=== PATIENT | male | born 1970 | race Caucasian/White ===

== ENCOUNTER 2017-04-03 06:08 | Emergency (ER) | payer OTHER ==
[~2017-04-03] VITALS: Ht 180.3 cm; Wt 109.3 kg
[~2017-04-03 06:08] MED LIST: ACET325 PO; ALBU90OI INH; AMIT50 PO; AZIT250 PO; Bactrim Ds Tab1 EACH PO; CEPH500 PO; CIPR500 PO; CYCL10; CYCL10 PO; DOXY100 PO; GABA100 PO; HYDACE10B PO; HYDACE5 PO; IBUP800 PO; LEVFLO250 PO; MELO7.5 PO; METF500 PO; METH10 PO; Monodox100 MG PO; NAPR500 PO; NAPR550 PO; OMEP20ER PO; OXYACE5T PO; PENVK250 PO; PENVK500 PO; PHENA200 PO; PRED20 PO; PROACE100 PO; Percocet 10-321 EACH PO; Prednisone20 MG PO; RXCYCL10 PO; RXNAPNA550 PO; SULTRIDS PO; TRAM50 PO; Valium5 MG PO
[2017-04-03] MEDS ORDERED: Indomethacin50 MG PO (09:24)
== END 2017-04-03 09:46 | disposition home or self-care (01) ==
LOC: ER 06:08
DX: M10.071 Idiopathic gout, right ankle and foot (principal); F17.200 Nicotine dependence, unspecified, uncomplicated; Z88.6 Allergy status to analgesic agent
CPT/HCPCS: 73660; 96372; 99283; J1885

== ENCOUNTER → 2020-03-07 | Outpatient (CLI) | payer OTHER ==
[~2020-03-07] MED LIST changes: +AMIT10 PO; +Indomethacin50 MG PO; +METF500C PO; +Naprosyn500 MG PO; +Norco 5-325 Ta1 EACH PO
== END | disposition home or self-care (01) ==
LOC: LAB SHORT 08:15
DX: N30.01 Acute cystitis with hematuria (principal)
CPT/HCPCS: 87086

== ENCOUNTER → 2021-01-01 | Outpatient (CLI) | payer OTHER ==
[2021-01-05 17:11] LABS: COTININE Negative ng/mL (Cutoff=300)
== END ==
LOC: LAB 11:32 → LAB SHORT 11:32
PROVIDERS: Orthopaedic Surgery
DX: M16.12 Unilateral primary osteoarthritis, left hip (principal); Z01.818 Encounter for other preprocedural examination; Z87.891 Personal history of nicotine dependence; Z88.5 Allergy status to narcotic agent

== ENCOUNTER 2021-05-07 12:05 | Day surgery (SDC) | payer OTHER ==
[~2021-05-07] VITALS: Ht 180.3 cm; Wt 111.0 kg
[~2021-05-07 12:05] MED LIST changes: -AMIT10 PO; +ELAVIL 10 MG PO; +GLIP5ER PO; +Prinivil10 MG PO
[2021-05-07] MEDS ORDERED: AMITRIPTYLINE100 M2 PO (12:30)
[2021-05-07] MEDS ORDERED: METF500C PO (12:31)
[2021-05-07] MEDS ORDERED: IBUP800 PO (12:33)
[2021-05-07] MEDS ORDERED: LIDO700A20 TOP (12:34)
[2021-05-07] MEDS ORDERED: Lisinopril-Hct1 EAC4 PO (12:35)
--- NOTE | 2021-05-07 12:38 | NUR ---
CONFIRMED WITH PATIENT THAT ORAL NARCOTIC PAIN MEDICATION TOLERATED DESPITE TRAMADOL SENSITIVITY.
--- NOTE | 2021-05-07 12:39 | NUR ---
History, Chart, Medications and Allergies reviewed before start of procedure. Patient confirms NPO status and agrees with scheduled surgery. Patient removed dentures and placed them in his backpack.
--- NOTE | 2021-05-07 12:59 | NUR ---
REPORT GIVEN TO ELIEZER DUVAL RN.
--- NOTE | 2021-05-07 12:59 | NUR ---
KNEE HIGH MITCHEL HOSE WITH CALF PAS APPLIED TO BLE.
--- NOTE | 2021-05-07 13:31 | NUR ---
PT SDS c STEADY GAIT. History, Chart, Medications and Allergies reviewed before start of procedure. Lungs clear T/O to Auscultation. Patient reports completing Chlorhexadine shower X2 prior to admission to hospital. Surgical site prepped with 2% Chlorhexidine cloth wipe. CHEM BG 149.
--- NOTE | 2021-05-07 19:03 | NUR ---
ADMISSION ASSESSMENT ACTUALLY COMPLETED AT 1815 NOT 1615.
--- NOTE | 2021-05-08 03:19 | NUR ---
SHIFT SUMMARY: PT. AOX4, COMPLAINTS OF L HIP PAIN MEDICATED PER EMAR. PT. IS SLEEPING WELL. VOIDING IN URINAL CLEAR RONALD COLORED URINE. TOLERATING WELL REGULAR DIET. POLAR PACK IN PLACE. AQUACEL TO L HIP INCISION C/D/I. NO ACUTE CHANGES NOTED. ABLE TO MAKE NEEDS KNOWN USING CALL LIGHT, CLWR. WILL CONTINUE TO MONITOR.
--- NOTE | 2021-05-08 04:38 | NUR ---
SCATTERED RASHES NOTED AT PT'S FACE & L ARM, PT. STAED " I ALWAYS HAVE THAT", NOTHING NEW TO HIM PER PT.
--- NOTE | 2021-05-08 04:49 | NUR ---
PT. AMBULATED IN THE ROOM TO THE HALLWAY USING A WALKER & GAITBELT WITH 1 PERSON ASSIST.
[2021-05-08 04:52] LABS: BASOPHILS ABSOLUTE AUTO 0.02 K/mm3 (0.00-0.23); BASOPHILS PERCENT AUTO 0 % (0-2); EOSINOPHILS PERCENT AUTO 0 % (0-6); Hematocrit 41.3 % (37.0-53.0); Hemoglobin 14.4 g/dL (13.5-17.5); IMMATURE GRAN ABSOLUTE AUTO 0.08 K/mm3 (0.00-0.10); IMMATURE GRAN PERCENT AUTO 1 % (0-1); LYMPHOCYTES ABSOLUTE AUTO 1.06 K/mm3 (0.84-5.20); LYMPHOCYTES PERCENT AUTO 7 % (21-46); MONOCYTES ABSOLUTE AUTO 0.69 K/mm3 (0.16-1.47); MONOCYTES PERCENT AUTO 4 % (4-13); Mean Corpuscular HGB 28.6 pg (26.0-34.0); Mean Corpuscular HGB Conc 34.9 g/dL (31.5-36.5); Mean Corpuscular Volume 82 fL (80-100); Mean Platelet Volume 9.4 fL (9.1-12.4); NEUTROPHILS ABSOLUTE AUTO 14.27 K/mm3 (1.96-9.15); NEUTROPHILS PERCENT AUTO 89 % (41-73); Platelet Count 250 K/mm3 (150-400); RDW Coefficient Variation 13.2 % (11.7-14.2); RDW Standard Deviation 39.5 fL (35.1-46.3); Red Blood Cell Count 5.03 M/mm3 (4.30-5.90); White Blood Cell Count 16.12 K/mm3 (4.00-11.30)
[2021-05-08 05:10] LABS: Anion Gap 6 mmol/L (6-16); Blood Urea Nitrogen 18 mg/dL (8-24); Bun/Creatinine Ratio 19.8 (12.0-20.0); CO2, Blood 28 mmol/L (21-32); Calcium, Blood 8.8 mg/dL (8.5-10.1); Chloride, Blood 96 mmol/L (98-108); Creatinine, Blood 0.91 mg/dL (0.60-1.20); Glomerular Filtration Rate >60 (60-); Glucose, Blood 239 mg/dL (70-99); Potassium, Blood 4.5 mmol/L (3.5-5.5); Sodium, Blood 130 mmol/L (136-145)
--- NOTE | 2021-05-08 06:44 | NUR ---
pt felt the need have a bowel movement, complains of constipation. back in chair standbu assist call light within reach
[2021-05-08] MEDS ORDERED: ASPI81CH PO (09:21)
[2021-05-08] MEDS ORDERED: OXAYDO5 M1 PO (09:21)
--- NOTE | 2021-05-08 11:03 | NUR ---
DISCHARGE SUMMARY POD 1 L CHRIS, A/O X4, VSS, TOLERATING PO, VOIDING, AMBULATING, PAIN WELL MANAGED. DISCHARGE INFORMATION/EDUCATION GIVEN, DISCUSSED ICE/ELEVATION/AMBULATION AT HOME AND PAIN CONTROL, CONTACT INFORMATION GIVEN SHOULD FUTURE QUESTIONS ARISE. PATIENT REPORTS NO QUESTIONS AT THIS TIME, PT ESCORTED OUT BY ORTHODONTIC TECHNICIAN ASSISTANT WITH ALL PERSONAL POSSESSIONS.
--- NOTE | 2021-05-08 14:00 | NUR ---
05/08/21 1400 Skye Mendes VERIFICATIONS: EDIT CHART.
== END 2021-05-08 10:55 | disposition home or self-care (01) ==
LOC: ORSCMMR 12:05 → SURS 17:59 → ORSCMMR 05-08 10:55
PROVIDERS: Orthopaedic Surgery
PROC: 0SRB0JA Replacement of Left Hip Joint with Synthetic Substitute, Uncemented, Open Approach (ICD-10-PCS; principal; 2021-05-07 13:30)
DX: M16.12 Unilateral primary osteoarthritis, left hip (principal); Z87.891 Personal history of nicotine dependence; E11.9 Type 2 diabetes mellitus without complications; I10 Essential (primary) hypertension; Z79.84 Long term (current) use of oral hypoglycemic drugs; Z79.899 Other long term (current) drug therapy
CPT/HCPCS: 36415; 72170; 80048; 82947; 85025; 97110; 97116; 97162; 97530; A9270; C1776; J0171; J0690; J0735; J1100; J1170; J1815; J1885; J2250; J2405; J2704; J2795; J3010; J7120

== ENCOUNTER 2021-09-03 08:32 | Day surgery (SDC) | payer OTHER ==
[~2021-09-03] VITALS: Ht 180.3 cm; Wt 107.9 kg
[~2021-09-03 08:32] MED LIST changes: +AMITRIPTYLINE100 M2 PO; +ASPI81CH PO; +LIDO700A20 TOP; +Lisinopril-Hct1 EAC4 PO; +OXAYDO5 M1 PO
--- NOTE | 2021-09-03 15:00 | NUR ---
PT TO ROOM AND REQUESTING PAIN MEDICATION.
--- NOTE | 2021-09-03 18:24 | NUR ---
SHIFT SUMMARY PT POD #0 FOR R TKA. PT UNABLE TO HAVE SPINAL SO EXPERIENCED QUITE A BIT OF PAIN POST OP. PAIN NOW CONTROLLED PER EMR. AQUACEL AND IDALAI WRAP DRESSING TO R KNEE, CDI. PT HAS NOT WORKED WITH PHYSICAL THERAPY YET. VSS.
--- NOTE | 2021-09-04 03:11 | NUR ---
SHIFT SUMMARY A/OX4, 1P ASSIST WITH FWW AND GB. PT UP AMBULATING HALLS THIS SHIFT. C/O 08/16 PAIN, MEDICATED PER EMAR. AQUACEL, IDALIA WRAP, AND POLAR PACK TO R. KNEE. VSS, NO ACUTE CHANGES AT THIS TIME. BED IN LOWEST POSITION WITH CALL LIGHT IN REACH. WILL CONTINUE TO MONITOR AND REPORT TO ONCOMING RN.
[2021-09-04 05:25] LABS: BASOPHILS ABSOLUTE AUTO 0.03 K/mm3 (0.00-0.23); BASOPHILS PERCENT AUTO 0 % (0-2); EOSINOPHILS ABSOLUTE AUTO 0.02 K/mm3 (0.00-0.68); EOSINOPHILS PERCENT AUTO 0 % (0-6); Hematocrit 37.4 % (37.0-53.0); Hemoglobin 12.9 g/dL (13.5-17.5); IMMATURE GRAN ABSOLUTE AUTO 0.08 K/mm3 (0.00-0.10); IMMATURE GRAN PERCENT AUTO 1 % (0-1); LYMPHOCYTES ABSOLUTE AUTO 1.27 K/mm3 (0.84-5.20); LYMPHOCYTES PERCENT AUTO 7 % (21-46); MONOCYTES ABSOLUTE AUTO 0.79 K/mm3 (0.16-1.47); MONOCYTES PERCENT AUTO 5 % (4-13); Mean Corpuscular HGB 27.6 pg (26.0-34.0); Mean Corpuscular HGB Conc 34.5 g/dL (31.5-36.5); Mean Corpuscular Volume 80 fL (80-100); NEUTROPHILS ABSOLUTE AUTO 15.26 K/mm3 (1.96-9.15); NEUTROPHILS PERCENT AUTO 87 % (41-73); Platelet Count 262 K/mm3 (150-400); RDW Coefficient Variation 13.9 % (11.7-14.2); RDW Standard Deviation 40.2 fL (35.1-46.3); Red Blood Cell Count 4.68 M/mm3 (4.30-5.90); White Blood Cell Count 17.45 K/mm3 (4.00-11.30)
[2021-09-04 05:48] LABS: Calcium, Blood 8.7 mg/dL (8.5-10.1); Creatinine, Blood 0.85 mg/dL (0.60-1.20)
[2021-09-04] MEDS ORDERED: Aspir 8181 MG PO (10:02)
[2021-09-04] MEDS ORDERED: Percocet 5-3251 EACH PO (10:02)
--- NOTE | 2021-09-04 11:35 | NUR ---
DISCHARGE SUMMARY PT POD #1 FOR R TOTAL KNEE. IDALIA WRAP AND AQUACEL DRESSING IN PLACE AND CDI. PT HAS INCREASED PAIN DUE TO NOT BEING ABLE TO HAVE SPINAL ANESTHESIA. MEDICATED FOR PAIN X2 PRIOR TO DISCHARGING. WORKED WITH P/T AND AMBULATES WELL WITH 1 ASSIST W/FWW/GB. DC'D HOME WITH FRIEND.
== END 2021-09-04 11:25 | disposition home or self-care (01) ==
LOC: ORSCMMR 08:32 → ORD 10:00 → SURS 14:43 → ORSCMMR 09-04 11:25
PROVIDERS: Orthopaedic Surgery
PROC: 0SRC0JA Replacement of Right Knee Joint with Synthetic Substitute, Uncemented, Open Approach (ICD-10-PCS; principal; 2021-09-03 10:00)
PROC: 8E0YXCZ Robotic Assisted Procedure of Lower Extremity (ICD-10-PCS; principal; 2021-09-03 10:00)
DX: M17.11 Unilateral primary osteoarthritis, right knee (principal); I10 Essential (primary) hypertension; Z87.891 Personal history of nicotine dependence; E11.9 Type 2 diabetes mellitus without complications; E66.9 Obesity, unspecified; Z68.33 Body mass index [BMI] 33.0-33.9, adult; Z79.84 Long term (current) use of oral hypoglycemic drugs; Z79.899 Other long term (current) drug therapy
CPT/HCPCS: 27447; S2900; 36415; 73560-RT; 80048; 82947; 85025; 97110; 97116; 97161; 97530; A9270; C1776; J0171; J0690; J0735; J1100; J1170; J1815; J1885; J2250; J2370; J2405; J2704; J2795; J3010; J7120

== ENCOUNTER 2022-11-30 13:31 | Observation (INO) | payer OTHER ==
[~2022-11-30] VITALS: Ht 180.3 cm; Wt 90.7 kg
[~2022-11-30 13:31] MED LIST changes: +Aspir 8181 MG PO; +Percocet 5-3251 EACH PO
[2022-11-30 13:49] VITALS: BP 181/109
[2022-11-30 14:45] LABS: BASOPHILS ABSOLUTE AUTO 0.04 K/mm3 (0.00-0.23); BASOPHILS PERCENT AUTO 0 % (0-2); EOSINOPHILS ABSOLUTE AUTO 0.15 K/mm3 (0.00-0.68); EOSINOPHILS PERCENT AUTO 1 % (0-6); Hemoglobin 16.6 g/dL (13.5-17.5); IMMATURE GRAN ABSOLUTE AUTO 0.03 K/mm3 (0.00-0.10); IMMATURE GRAN PERCENT AUTO 0 % (0-1); LYMPHOCYTES ABSOLUTE AUTO 2.41 K/mm3 (0.84-5.20); LYMPHOCYTES PERCENT AUTO 23 % (21-46); MONOCYTES ABSOLUTE AUTO 0.63 K/mm3 (0.16-1.47); MONOCYTES PERCENT AUTO 6 % (4-13); Mean Corpuscular HGB 29.9 pg (26.0-34.0); Mean Corpuscular HGB Conc 36.1 g/dL (31.5-36.5); Mean Corpuscular Volume 83 fL (80-100); Mean Platelet Volume 9.5 fL (9.1-12.4); NEUTROPHILS ABSOLUTE AUTO 7.15 K/mm3 (1.96-9.15); NEUTROPHILS PERCENT AUTO 69 % (41-73); Platelet Count 339 K/mm3 (150-400); RDW Coefficient Variation 13.4 % (11.7-14.2); Red Blood Cell Count 5.56 M/mm3 (4.30-5.90); White Blood Cell Count 10.41 K/mm3 (4.00-11.30)
[2022-11-30 15:05] LABS: Ethanol (Alcohol), Blood, Med <3 mg/dL; Salicylate 3.8 mg/dL (2.8-20.0); Thyroxine (T4) 11.8 ug/dL (4.5-12.1)
[2022-11-30 15:09] LABS: Acetaminophen, Random <2.0 ug/mL (10.0-30.0); Alanine Aminotransfer (ALT/SGP 26 U/L (12-78); Albumin, Blood 4.2 g/dL (3.4-5.0); Albumin/Globulin Ratio 1.2 (0.8-1.8); Alk Phos 70 U/L (50-136); Anion Gap 5 mmol/L (6-16); Aspartate Aminotrans (AST/SGOT 16 U/L (12-37); Bilirubin, Total 0.6 mg/dL (0.1-1.0); Blood Urea Nitrogen 15 mg/dL (8-24); Bun/Creatinine Ratio 20.5 (12.0-20.0); CO2, Blood 27 mmol/L (21-32); Calcium, Blood 9.1 mg/dL (8.5-10.1); Chloride, Blood 107 mmol/L (98-108); Creatinine, Blood 0.73 mg/dL (0.60-1.20); Globulin, Blood 3.5 g/dL (2.2-4.0); Glomerular Filtration Rate 108 (60-); Glucose, Blood 167 mg/dL (70-99); Potassium, Blood 3.4 mmol/L (3.5-5.5); Sodium, Blood 139 mmol/L (136-145); Total Protein, Blood 7.7 g/dL (6.4-8.2)
[2022-11-30 15:11] LABS: U Amphetamine Screen Not Detected; U Barbituate Screen Not Detected; U Benzodiazapine Screen DETECTED; U Buprenorphine Screen Not Detected; U Cannabinoids Screen DETECTED; U Cocaine Screen Not Detected; U Methadone Screen Not Detected; U Methamphetamine Screen Not Detected; U Opiates Screen Not Detected; U Oxycodone Screen Not Detected; U Phencyclidine Screen Not Detected; U Propoxyphene Screen Not Detected
== END 2022-11-30 19:22 | disposition home or self-care (01) ==
LOC: ER 13:31 → EOR 13:32
PROVIDERS: Emergency Medicine; ADMIT Student in an Organized Health Care Education/Training Program
DX: F31.9 Bipolar disorder, unspecified (principal); I10 Essential (primary) hypertension; E11.9 Type 2 diabetes mellitus without complications; Z79.84 Long term (current) use of oral hypoglycemic drugs; F17.210 Nicotine dependence, cigarettes, uncomplicated
CPT/HCPCS: 70450; 80053; 84436; 85025; 93005; 93010; 99285-25; A9270; G0378; G0480

== ENCOUNTER 2022-12-03 16:40 | Observation (INO) | payer OTHER ==
[~2022-12-03] VITALS: Ht 180.3 cm; Wt 90.7 kg
[~2022-12-03 16:40] MED LIST changes: +DIVA500EC PO; +OLAN20 MM
[2022-12-03 17:27] LABS: BASOPHILS ABSOLUTE AUTO 0.04 K/mm3 (0.00-0.23); BASOPHILS PERCENT AUTO 0 % (0-2); EOSINOPHILS ABSOLUTE AUTO 0.35 K/mm3 (0.00-0.68); EOSINOPHILS PERCENT AUTO 3 % (0-6); Hematocrit 48.6 % (37.0-53.0); IMMATURE GRAN ABSOLUTE AUTO 0.04 K/mm3 (0.00-0.10); IMMATURE GRAN PERCENT AUTO 0 % (0-1); LYMPHOCYTES ABSOLUTE AUTO 3.11 K/mm3 (0.84-5.20); LYMPHOCYTES PERCENT AUTO 26 % (21-46); MONOCYTES ABSOLUTE AUTO 0.73 K/mm3 (0.16-1.47); MONOCYTES PERCENT AUTO 6 % (4-13); Mean Corpuscular HGB 29.2 pg (26.0-34.0); Mean Corpuscular Volume 84 fL (80-100); Mean Platelet Volume 9.4 fL (9.1-12.4); NEUTROPHILS ABSOLUTE AUTO 7.91 K/mm3 (1.96-9.15); NEUTROPHILS PERCENT AUTO 65 % (41-73); Platelet Count 340 K/mm3 (150-400); RDW Coefficient Variation 13.4 % (11.7-14.2); RDW Standard Deviation 40.9 fL (35.1-46.3); Red Blood Cell Count 5.82 M/mm3 (4.30-5.90); White Blood Cell Count 12.18 K/mm3 (4.00-11.30)
[2022-12-03 17:57] LABS: Ethanol (Alcohol), Blood, Med <3 mg/dL; Salicylate 4.1 mg/dL (2.8-20.0)
[2022-12-03 18:00] LABS: Alanine Aminotransfer (ALT/SGP 27 U/L (12-78); Albumin, Blood 4.1 g/dL (3.4-5.0); Albumin/Globulin Ratio 1.1 (0.8-1.8); Alk Phos 66 U/L (50-136); Anion Gap 7 mmol/L (6-16); Aspartate Aminotrans (AST/SGOT 21 U/L (12-37); Bilirubin, Total 0.7 mg/dL (0.1-1.0); Blood Urea Nitrogen 14 mg/dL (8-24); Bun/Creatinine Ratio 22.2 (12.0-20.0); CO2, Blood 21 mmol/L (21-32); Calcium, Blood 9.3 mg/dL (8.5-10.1); Chloride, Blood 107 mmol/L (98-108); Creatinine, Blood 0.63 mg/dL (0.60-1.20); Globulin, Blood 3.9 g/dL (2.2-4.0); Glomerular Filtration Rate 113 (60-); Glucose, Blood 142 mg/dL (70-99); Potassium, Blood 3.6 mmol/L (3.5-5.5); Sodium, Blood 135 mmol/L (136-145)
[2022-12-03 18:13] LABS: Acetaminophen, Random <2.0 ug/mL (10.0-30.0)
[2022-12-03 18:20] LABS: Source, Urine Clean Catch
[2022-12-03 18:23] LABS: Appearance, Urine Clear (Clear); Bilirubin, Urine Neg (Neg); Blood, Urine Neg (Neg); Color, Urine Amber (P-Yellow); Glucose Qualitative, Urine Neg (Neg); Ketones, Urine 4+ (Neg); Leukocyte Esterase, Urine 1+ (Neg); Nitrite, Urine Neg (Neg); Protein, Urine 2+ (Neg); Specific Gravity, Urine 1.025 (1.003-1.022); Urobilinogen, Urine 1+ (Normal)
[2022-12-03 18:33] LABS: Bacteria Few /hpf; Hyaline Casts 0-2 /lpf (0-2); Mucus Light (0-Heavy); Red Blood Cells, Urine Not Seen /hpf (0-2); Squamous Epithelial Cells Few /hpf (Few)
[2022-12-03 18:35] LABS: U Amphetamine Screen Not Detected; U Barbituate Screen Not Detected; U Benzodiazapine Screen Not Detected; U Buprenorphine Screen Not Detected; U Cannabinoids Screen DETECTED; U Cocaine Screen Not Detected; U Methadone Screen Not Detected; U Methamphetamine Screen Not Detected; U Opiates Screen Not Detected; U Oxycodone Screen Not Detected; U Phencyclidine Screen Not Detected; U Propoxyphene Screen Not Detected
[2022-12-03 20:19] LABS: Influenza A, PCR NEGATIVE (NEGATIVE); Influenza B, PCR NEGATIVE (NEGATIVE); Resp Syncytial Virus, PCR NEGATIVE (NEGATIVE); SARS-Cov-2 (COVID-19) PCR, MMC NEGATIVE (NEGATIVE)
[2022-12-06] MEDS ORDERED: Robaxin750 MG (02:58)
[2022-12-07 23:19] VITALS: BP 122/68
== END 2022-12-08 14:30 | disposition home or self-care (01) ==
LOC: ER 16:40 → EOR 16:41
PROVIDERS: Physician Assistant; ADMIT Emergency Medicine
DX: F31.9 Bipolar disorder, unspecified (principal); I10 Essential (primary) hypertension; E11.9 Type 2 diabetes mellitus without complications; F17.210 Nicotine dependence, cigarettes, uncomplicated; Z20.822 Contact with and (suspected) exposure to COVID-19
CPT/HCPCS: 0241U; 80053; 81001; 82947; 85025; 87086; 96372; 99285-25; A9270; G0378; G0480; J1790; J1885; Q3014

== ENCOUNTER → 2023-03-19 | Outpatient (CLI) | payer OTHER ==
[~2023-03-19] MED LIST changes: +Robaxin750 MG
[2023-03-19 18:11] LABS: Source, Urine Clean Catch
[2023-03-19 19:09] LABS: Appearance, Urine Clear (Clear); Bilirubin, Urine Neg (Neg); Blood, Urine Neg (Neg); Glucose Qualitative, Urine 4+ (Neg); Ketones, Urine Neg (Neg); Leukocyte Esterase, Urine Neg (Neg); Nitrite, Urine Neg (Neg); Protein, Urine Neg (Neg); Specific Gravity, Urine 1.015 (1.003-1.022); Urobilinogen, Urine NORM (Normal)
[2023-03-19 19:14] LABS: Color, Urine Pale Yellow (P-Yellow)
== END ==
LOC: LAB 18:09 → LAB SHORT 18:09
PROVIDERS: Family Medicine
DX: R30.0 Dysuria (principal)
CPT/HCPCS: 81003

== ENCOUNTER 2023-04-22 10:15 | Day surgery (SDC) | payer OTHER ==
[~2023-04-22] VITALS: Ht 180.3 cm; Wt 94.8 kg
[~2023-04-22 10:15] MED LIST changes: +BUPRENORPHIN-N1 EAC1; +Lactated Ringer's 1,000 ML IV ONE; +Lidocaine 2%-Epineph 1:100000 20 ML MDV ONE; +Methocarbamol500 MG PO
[2023-04-22] MEDS ORDERED: Midazolam HCl 1MG / ML 2ML Vial ONE ×2 (10:31→10:34)
[2023-04-22] MEDS ORDERED: FentaNYL Citrate 50 MCG/ML 2 ML Injection ONE (10:34)
[2023-04-22] MEDS ORDERED: QUETIAPINE FUM10011 PO (10:38)
[2023-04-22] MEDS ORDERED: SUBLOCADE SQ (10:39)
[2023-04-22] MEDS ORDERED: LAMOTRIGINE100 M1 PO (10:39)
[2023-04-22] MEDS ORDERED: IBUP800 PO (10:40)
[2023-04-22] MEDS ORDERED: Robaxin750 MG (10:41)
[2023-04-22] MEDS ORDERED: Lactated Ringer's 1,000 ML IV ONE (10:48)
[2023-04-22 11:53] VITALS: BP 117/77
== END 2023-04-22 12:14 | disposition home or self-care (01) ==
LOC: ORSCSDS 10:15
PROVIDERS: Orthopaedic Surgery
PROC: 01N54ZZ Release Median Nerve, Percutaneous Endoscopic Approach (ICD-10-PCS; principal; 2023-04-22 11:30)
DX: G56.01 Carpal tunnel syndrome, right upper limb (principal); E11.9 Type 2 diabetes mellitus without complications; I10 Essential (primary) hypertension; Z79.84 Long term (current) use of oral hypoglycemic drugs; Z79.899 Other long term (current) drug therapy
CPT/HCPCS: 82947; J2250; J3010; J7120